=== PATIENT | female | born 1955 | race Caucasian/White ===

== ENCOUNTER 2024-04-30 17:03 | Emergency (ER) | payer MEDICARE, OTHER ==
[~2024-04-30] VITALS: Ht 160 cm; Wt 52.2 kg
[2024-04-30 17:06] VITALS: O2SAT 99
[2024-04-30] MEDS ORDERED: NEOMY/BACITRA/POLYMYXIN B OINT UD PACKET TP ONE (17:12)
[2024-04-30] MEDS ORDERED: AMOXICILLIN-CLAVUL 875-125MG TABLET ONE (17:20)
[2024-04-30] MEDS ORDERED: KETOROLAC TROMETHAMINE 15 MG INJ ONE (17:20)
[2024-04-30] MEDS: KETOROLAC TROMETHAMINE 15 MG INJ IM ONE (17:23)
[2024-04-30] MEDS: NEOMY/BACITRA/POLYMYXIN B OINT UD PACKET TP ONE (17:23)
[2024-04-30] MEDS: AMOXICILLIN-CLAVUL 875-125MG TABLET PO ONE (17:24)
[2024-04-30] MEDS ORDERED: IBUP-1955 PO (17:33)
[2024-04-30] MEDS ORDERED: AMOX-430 PO (17:33)
== END 2024-04-30 17:56 | disposition home or self-care (01) ==
LOC: ER 17:03
DX: S41.131A Puncture wound without foreign body of right upper arm, initial encounter (principal); E03.9 Hypothyroidism, unspecified; E11.9 Type 2 diabetes mellitus without complications; W55.01XA Bitten by cat, initial encounter; Y93.89 Activity, other specified; Y92.89 Other specified places as the place of occurrence of the external cause; Y99.8 Other external cause status
CPT/HCPCS: A4606; A4663; J1885